=== PATIENT | male | born 1975 | race African-American/Black ===

== ENCOUNTER 2020-09-05 19:49 | Emergency (ER) | payer SELFPAY ==
[~2020-09-05] VITALS: Ht 167.6 cm; Wt 56.7 kg
[2020-09-05] MEDS ORDERED: diphenhydrAMINE HCL 50 MG/ML VIAL ONE (20:00)
[2020-09-05] MEDS ORDERED: HALOPERIDOL LACTATE INJ 5 MG/ML VIAL ONE (20:01)
[2020-09-05] MEDS ORDERED: LORAZEPAM INJ 2 MG/ML VIAL ONE (20:01)
--- NOTE | 2020-09-05 20:10 | NUR ---
PT ANIKA 86 FROM HOME FOR ETOH. PER EMS WAS FOUND DRINKING A BOTTLE. PT PLACED IN BED 14 ON MONITOR AND PULSE OX. AWAITING ER MD FOR EVAL AND ORDERS.
[2020-09-05] MEDS ORDERED: HALOPERIDOL LACTATE INJ 5 MG/ML VIAL IM ONE (20:30)
[2020-09-05] MEDS ORDERED: diphenhydrAMINE HCL 50 MG/ML VIAL IM ONE (20:30)
[2020-09-05] MEDS ORDERED: LORAZEPAM INJ 2 MG/ML VIAL IM ONE (20:30)
--- NOTE | 2020-09-05 20:35 | NUR ---
[employer] SU[employer] AT BEDSIDE. PT PLACED ON 2L NC. PT ASLEEP, VSS.
[2020-09-05 20:38] LABS: BASOPHILS # (AUTO) 0.1 /CMM (0.0-0.2); BASOPHILS % (AUTO) 0.9 % (0.0-2.0); EOSINOPHILS % (AUTO) 0.4 % (0.0-6.0); HEMATOCRIT 45 % (39-51); HEMOGLOBIN 14.7 g/dL (13.5-17.5); LYMPHOCYTES # (AUTO) 2.3 /CMM (0.8-4.8); LYMPHOCYTES % (AUTO) 27.7 % (20.0-44.0); MEAN CORPUSCULAR HGB CONC 33 g/dl (31.0-36.0); MEAN CORPUSCULAR VOLUME 90 fL (80-96); MONOCYTES # (AUTO) 0.4 /CMM (0.1-1.30); NEUTROPHILS # (AUTO) 5.5 /CMM (1.8-8.9); PLATELET COUNT (AUTO) 189 /CMM (150-450); WHITE BLOOD COUNT (AUTO) 8.3 K/uL (4.3-11.0)
--- NOTE | 2020-09-05 20:40 | NUR ---
PT WAS TAKEN TO CT
[2020-09-05 20:50] LABS: CALCIUM, SERUM 8.4 mg/dL (8.5-10.1); CARBON DIOXIDE 21 mmol/L (21-32); CHLORIDE 105 mmol/L (98-107); CREATININE 1.2 mg/dL (0.6-1.3); GLUCOSE 91 mg/dL (74-106); POTASSIUM 3.8 mmol/L (3.5-5.1); SODIUM SERUM 145 mmol/L (136-145); UREA NITROGEN, BLOOD 19 mg/dL (7-18)
[2020-09-05 20:57] LABS: ACETAMINOPHEN < 2 ug/ml (10-30); ALANINE AMINOTRANSFERASE 35 U/L (12-78); ALBUMIN 3.8 g/dL (3.4-5.0); ALCOHOL, BLOOD 455 mg/dL (0-0); ALKALINE PHOSPHATASE 94 U/L (46-116); ASPARTATE AMINOTRANSFERASE 46 U/L (15-37); BILIRUBIN,DIRECT 0.2 mg/dL (0.0-0.2); BILIRUBIN,TOTAL 0.7 mg/dL (0.2-1.0); TOTAL PROTEIN, SERUM 7.6 g/dL (6.4-8.2)
--- NOTE | 2020-09-05 20:57 | NUR ---
PT RETURNED FROM CT
--- NOTE | 2020-09-06 01:31 | NUR ---
PT UNABLE TO PROVIDE URINE SAMPLE AT THIS TIME. MD LEUNG
--- NOTE | 2020-09-06 05:38 | NUR ---
PT AAOX4. AMBULATORY WITH STEADY GAIT. REQUESTED TO LEAVE ED. PT AMBULATED THROUGH THE ED WITH STEADY GAIT. PT WAS PROVIDED WITH BLANKETS BEFORE DISCHARGE. PT WAS ABLE TO PROVIDE HIS ADDRESS AND KNEW WHICH WAY TO GO HOME. VSS. DISCHAGRED.
[2020-09-06 05:40] VITALS: BP 131/73
== END 2020-09-06 05:41 | disposition home or self-care (01) ==
LOC: ER 19:52 → EDBD 19:52 → ER 09-06 05:41
DX: S00.03XA Contusion of scalp, initial encounter (principal); F10.129 Alcohol abuse with intoxication, unspecified; R41.82 Altered mental status, unspecified; Y90.8 Blood alcohol level of 240 mg/100 ml or more; X58.XXXA Exposure to other specified factors, initial encounter; Y93.89 Activity, other specified; Y92.89 Other specified places as the place of occurrence of the external cause; Y99.8 Other external cause status
CPT/HCPCS: 36415; 70450; 80048; 80076; 80299; 80320; 85025; 96372 ×2; 99284; J1200; J1630; J2060; G0480